=== PATIENT | female | born 1955 | race Caucasian/White ===

== ENCOUNTER 2021-10-12 02:23 | Inpatient (IN) ==
[2021-10-12 02:54] LABS: ABS Eosinophils 0.1 10^3/ul (0-0.6); ABS Monocytes 0.7 10^3/ul (0-0.8); ABS Neutrophils 8.1 10^3/ul (1.5-7.7); Hematocrit 37 % (35-47); Hemoglobin 12.5 g/dL (12.0-16.0); Lymphocyte % 10.1 %; Mean Corpuscular HGB Conc 34 g/dL (31-36); Mean Corpuscular Hemoglobin 32 pg (27-31); Mean Corpuscular Volume 96 fL (80-97); Mean Platelet Volume 8.6 fL (7.4-10.4); Platelet Count 251 10^3/uL (150-450); Red Blood Count 3.89 10^6 /uL (3.70-4.87); Red Cell Distribution Width 14 % (10-15)
[2021-10-12] MEDS ORDERED: Lidocaine PATCH 5% PATCH TRANSDERM ONE (02:54)
[2021-10-12 03:01] LABS: INR 1.19 (0.86-1.15)
[2021-10-12 03:10] LABS: ALT 19 U/L (7-52); AST 18 U/L (13-39); Albumin 3.8 g/dL (3.2-5.2); Albumin/Globulin Ratio 1.4 (1-3); Alkaline Phosphatase 56 U/L (35-149); Anion Gap 6 mmol/L (2-11); Blood Urea Nitrogen 14 mg/dL (6-24); CO2 Carbon Dioxide 26 mmol/L (22-32); Calcium 7.9 mg/dL (8.6-10.3); Chloride 103 mmol/L (101-111); Creatine Kinase 244 U/L (10-223); Globulin 2.8 g/dL (2-4); Glucose 155 mg/dL (70-100); Potassium 4.1 mmol/L (3.5-5.0); Sodium 135 mmol/L (135-145); Total Protein 6.6 g/dL (6.4-8.9); eGFR CKD-EPI 54.3 (>60)
[2021-10-12] MEDS ORDERED: Iodixanol (CONTRAST) 320 MG/ML 100 ML SDV IV ONE (03:48)
[2021-10-12 04:13] LABS: C Reactive Protein 78.01 mg/L (<8.01)
[2021-10-12] MEDS ORDERED: Lactated Ringers 1000 ml BAG 1,000 ML IV ONE (06:00)
[2021-10-12] MEDS ORDERED: Azithromycin 500 mg/250 ml NS 500 MG/250 ML BAG IVPB SCH (07:00)
[2021-10-12] MEDS: oxyCODONE/Acetamin 5/325 mg TAB PO PRN (08:19)
[2021-10-12 08:54] LABS: Anion Gap 5 mmol/L (2-11); Blood Urea Nitrogen 11 mg/dL (6-24); CO2 Carbon Dioxide 24 mmol/L (22-32); Calcium 7.1 mg/dL (8.6-10.3); Chloride 108 mmol/L (101-111); Creatine Kinase 313 U/L (10-223); Glucose 103 mg/dL (70-100); Potassium 3.5 mmol/L (3.5-5.0); Sodium 137 mmol/L (135-145); eGFR CKD-EPI 69.5 (>60)
[2021-10-12 09:04] LABS: Troponin I 0.24 ng/mL (<0.03)
[2021-10-12] MEDS: Lidocaine PATCH 5% PATCH TRANSDERM SCH (09:12)
[2021-10-12 09:27] LABS: Urine Appearance Cloudy; Urine Bacteria Absent (Absent); Urine Bilirubin Negative (Negative); Urine Blood 1+ (Negative); Urine Color Yellow; Urine Glucose Negative (Negative); Urine Ketones Negative (Negative); Urine Nitrite Negative (Negative); Urine Protein 1+(30 mg/dL) (Negative); Urine Red Blood Cell Trace(0-2/hpf) (Absent); Urine Squamous Epithelial Cell Present (Absent); Urine Urobilinogen Negative (Negative); Urine White Blood Cell Trace(0-5/hpf) (Absent)
[2021-10-12 09:39] LABS: Urine Specific Gravity > 1.060 (1.002-1.030)
[2021-10-12] MEDS: DOXYcycline 100 MG in NS 0.9% 250 ml 250 ML IVPB SCH ×2 (11:05→21:26)
[2021-10-12] MEDS: Morphine 2 MG/ML SYRINGE IV PRN ×4 (12:52→21:25)
[2021-10-12] MEDS ORDERED: Lidocaine Patch REMOVE NOTE PATCH OFF SCH (21:00)
[2021-10-12] MEDS: Lidocaine Patch REMOVE NOTE PATCH OFF SCH (21:16)
[2021-10-12] MEDS ORDERED: Ondansetron 4 mg VIAL 2 MG/ML 2 ml VIAL IV PRN (21:45)
[2021-10-13] MEDS: Morphine 2 MG/ML SYRINGE IV PRN ×2 (03:39→20:28)
[2021-10-13] MEDS ORDERED: cefTRIAXone 1 gm/50 mL NS BAG 1 GM/50 ML BAG IVPB SCH (08:00)
[2021-10-13] MEDS: Lidocaine PATCH 5% PATCH TRANSDERM SCH (08:41)
[2021-10-13 09:02] LABS: ABS Eosinophils 0.1 10^3/ul (0-0.6); ABS Lymphocytes 1.4 10^3/ul (1.0-4.8); ABS Monocytes 0.4 10^3/ul (0-0.8); ABS Neutrophils 4.4 10^3/ul (1.5-7.7); Eosinophil % 1.7 %; Hematocrit 37 % (35-47); Hemoglobin 12.4 g/dL (12.0-16.0); Lymphocyte % 21.3 %; Mean Corpuscular HGB Conc 34 g/dL (31-36); Mean Corpuscular Hemoglobin 33 pg (27-31); Mean Corpuscular Volume 97 fL (80-97); Mean Platelet Volume 8.4 fL (7.4-10.4); Platelet Count 254 10^3/uL (150-450); Red Cell Distribution Width 14 % (10-15); White Blood Count 6.4 10^3/uL (3.5-10.8)
[2021-10-13 09:16] LABS: Albumin 3.8 g/dL (3.2-5.2); Albumin/Globulin Ratio 1.2 (1-3); Calcium 8.2 mg/dL (8.6-10.3); Globulin 3.2 g/dL (2-4); Magnesium 2.1 mg/dL (1.9-2.7); Potassium 3.8 mmol/L (3.5-5.0); Total Bilirubin 0.5 mg/dL (0.2-1.0); eGFR CKD-EPI 71.4 (>60)
[2021-10-13] MEDS: DOXYcycline 100 MG in NS 0.9% 250 ml 250 ML IVPB SCH (10:06)
[2021-10-13] MEDS: oxyCODONE/Acetamin 5/325 mg TAB PO PRN (13:21)
[2021-10-13] MEDS: Lidocaine Patch REMOVE NOTE PATCH OFF SCH (20:29)
[2021-10-14] MEDS: Morphine 2 MG/ML SYRINGE IV PRN ×3 (00:42→08:54)
[2021-10-14] MEDS: oxyCODONE/Acetamin 5/325 mg TAB PO PRN ×3 (03:39→21:45)
[2021-10-14 07:13] LABS: Hematocrit 36 % (35-47); Hemoglobin 12.2 g/dL (12.0-16.0); Mean Corpuscular HGB Conc 34 g/dL (31-36); Mean Corpuscular Hemoglobin 33 pg (27-31); Mean Corpuscular Volume 96 fL (80-97); Mean Platelet Volume 8.3 fL (7.4-10.4); Platelet Count 286 10^3/uL (150-450); Red Blood Count 3.71 10^6 /uL (3.70-4.87); Red Cell Distribution Width 14 % (10-15); White Blood Count 6.2 10^3/uL (3.5-10.8)
[2021-10-14] MEDS: Lidocaine PATCH 5% PATCH TRANSDERM SCH (09:13)
[2021-10-14] MEDS ORDERED: Senna TAB 8.6 mg TAB PO ONE (13:02)
[2021-10-14] MEDS: CMC: Meloxicam 7.5 mg TAB (NF) PO SCH (14:38)
[2021-10-14 14:46] LABS: Urine Bacteria Absent (Absent); Urine Red Blood Cell Absent (Absent); Urine Squamous Epithelial Cell Present (Absent); Urine White Blood Cell Absent (Absent)
[2021-10-14 14:52] LABS: Urine Appearance Clear; Urine Bilirubin Negative (Negative); Urine Blood Negative (Negative); Urine Color Colorless; Urine Glucose Negative (Negative); Urine Ketones Negative (Negative); Urine Nitrite Negative (Negative); Urine Protein Negative (Negative); Urine Specific Gravity 1.005 (1.002-1.030); Urine Urobilinogen Negative (Negative); Urine pH 8 (5-9)
[2021-10-14] MEDS: Lidocaine Patch REMOVE NOTE PATCH OFF SCH (21:47)
[2021-10-15 06:21] LABS: ABS Eosinophils 0.2 10^3/ul (0-0.6); ABS Lymphocytes 1.7 10^3/ul (1.0-4.8); ABS Monocytes 0.6 10^3/ul (0-0.8); ABS Neutrophils 3.8 10^3/ul (1.5-7.7); Eosinophil % 2.9 %; Hematocrit 39 % (35-47); Hemoglobin 13.4 g/dL (12.0-16.0); Lymphocyte % 26.7 %; Mean Corpuscular HGB Conc 35 g/dL (31-36); Mean Corpuscular Hemoglobin 33 pg (27-31); Mean Corpuscular Volume 96 fL (80-97); Mean Platelet Volume 8.4 fL (7.4-10.4); Platelet Count 319 10^3/uL (150-450); Red Blood Count 4.02 10^6 /uL (3.70-4.87); Red Cell Distribution Width 13 % (10-15); White Blood Count 6.4 10^3/uL (3.5-10.8)
[2021-10-15 06:37] LABS: Calcium 8.7 mg/dL (8.6-10.3); Magnesium 2.2 mg/dL (1.9-2.7); Potassium 4.1 mmol/L (3.5-5.0); eGFR CKD-EPI 78.7 (>60)
[2021-10-15] MEDS: Lidocaine PATCH 5% PATCH TRANSDERM SCH (09:47)
[2021-10-15] MEDS: CMC: Meloxicam 7.5 mg TAB (NF) PO SCH (09:48)
[2021-10-15] MEDS: oxyCODONE/Acetamin 5/325 mg TAB PO PRN ×2 (09:50→18:16)
[2021-10-15] MEDS: Magnesium Hydroxide LIQ 30 ML UDC PO PRN ×2 (18:16→20:15)
[2021-10-15] MEDS: Lidocaine Patch REMOVE NOTE PATCH OFF SCH (20:16)
[2021-10-16 07:53] LABS: ABS Lymphocytes 0.9 10^3/ul (1.0-4.8); ABS Monocytes 0.2 10^3/ul (0-0.8); ABS Neutrophils 6.7 10^3/ul (1.5-7.7); Eosinophil % 0.1 %; Hematocrit 41 % (35-47); Hemoglobin 13.9 g/dL (12.0-16.0); Lymphocyte % 11.6 %; Mean Corpuscular HGB Conc 34 g/dL (31-36); Mean Corpuscular Hemoglobin 33 pg (27-31); Mean Corpuscular Volume 95 fL (80-97); Mean Platelet Volume 8.2 fL (7.4-10.4); Platelet Count 419 10^3/uL (150-450); Red Blood Count 4.28 10^6 /uL (3.70-4.87); Red Cell Distribution Width 13 % (10-15); White Blood Count 7.8 10^3/uL (3.5-10.8)
[2021-10-16 08:38] LABS: Calcium 9.3 mg/dL (8.6-10.3); Magnesium 2.4 mg/dL (1.9-2.7); Potassium 4.4 mmol/L (3.5-5.0)
[2021-10-16] MEDS: Lidocaine PATCH 5% PATCH TRANSDERM SCH (08:41)
[2021-10-16] MEDS: CMC: Meloxicam 7.5 mg TAB (NF) PO SCH (08:42)
[2021-10-16 08:44] LABS: eGFR CKD-EPI 88.8 (>60)
[2021-10-16] MEDS: Magnesium Hydroxide LIQ 30 ML UDC PO PRN (11:40)
[2021-10-16] MEDS: Lidocaine Patch REMOVE NOTE PATCH OFF SCH (21:25)
[2021-10-17] MEDS: oxyCODONE/Acetamin 5/325 mg TAB PO PRN (05:31)
[2021-10-17] MEDS: Lidocaine PATCH 5% PATCH TRANSDERM SCH (09:50)
[2021-10-17] MEDS: CMC: Meloxicam 7.5 mg TAB (NF) PO SCH (09:51)
[2021-10-17 18:32] VITALS: BP 123/61
== END 2021-10-17 16:16 | DRG 134 ==
LOC: ED 02:23 → SUATTDRO 05:45 → EDHOLD 05:45 → MEDTELE 05:45
PROVIDERS: ADMIT Internal Medicine; ATTEND Internal Medicine

== ENCOUNTER 2021-10-17 16:35 | Inpatient (IN) ==
[2021-10-18] MEDS: oxyCODONE/Acetamin 5/325 mg TAB PO PRN ×2 (01:51→23:42)
[2021-10-19 06:31] LABS: ABS Lymphocytes 1.4 10^3/ul (1.0-4.8); ABS Monocytes 0.8 10^3/ul (0-0.8); ABS Neutrophils 7.8 10^3/ul (1.5-7.7); Hematocrit 42 % (35-47); Hemoglobin 13.9 g/dL (12.0-16.0); Lymphocyte % 14.2 %; Mean Corpuscular HGB Conc 34 g/dL (31-36); Mean Corpuscular Hemoglobin 32 pg (27-31); Mean Corpuscular Volume 96 fL (80-97); Mean Platelet Volume 8.2 fL (7.4-10.4); Nucleated Red Blood Cells % 0.1; Platelet Count 447 10^3/uL (150-450); Red Blood Count 4.34 10^6 /uL (3.70-4.87); Red Cell Distribution Width 14 % (10-15)
[2021-10-19 06:58] LABS: Albumin 4.2 g/dL (3.2-5.2); Albumin/Globulin Ratio 1.2 (1-3); Calcium 8.8 mg/dL (8.6-10.3); Globulin 3.5 g/dL (2-4); Potassium 4.4 mmol/L (3.5-5.0); Total Bilirubin 0.4 mg/dL (0.2-1.0); Total Protein 7.7 g/dL (6.4-8.9); eGFR CKD-EPI 76.5 (>60)
[2021-10-19] MEDS: oxyCODONE/Acetamin 5/325 mg TAB PO PRN ×2 (08:25→19:42)
[2021-10-19] MEDS: Senna TAB 8.6 mg TAB PO PRN (19:41)
[2021-10-20] MEDS: oxyCODONE/Acetamin 5/325 mg TAB PO PRN ×2 (09:02→20:13)
[2021-10-21] MEDS: oxyCODONE/Acetamin 5/325 mg TAB PO PRN ×4 (02:17→18:21)
[2021-10-21] MEDS: Magnesium Hydroxide LIQ 30 ML UDC PO PRN (18:01)
[2021-10-22] MEDS: oxyCODONE/Acetamin 5/325 mg TAB PO PRN ×5 (00:11→23:37)
[2021-10-22] MEDS ORDERED: ESTRADIOL 10 MCG VAGINAL SCH (20:00)
[2021-10-22] MEDS ORDERED: NF: Estradiol VAGINAL TAB (NF) 10 MCG VAG.TAB VAGINAL SCH (20:00)
[2021-10-23] MEDS: oxyCODONE/Acetamin 5/325 mg TAB PO PRN ×5 (03:47→23:45)
[2021-10-23] MEDS: Magnesium Hydroxide LIQ 30 ML UDC PO PRN (18:37)
[2021-10-23] MEDS: Senna TAB 8.6 mg TAB PO PRN (20:44)
[2021-10-24] MEDS: oxyCODONE/Acetamin 5/325 mg TAB PO PRN ×2 (06:36→10:36)
[2021-10-24 06:47] VITALS: BP 138/71
== END 2021-10-24 15:24 | disposition home health service (06) | DRG 347 ==
LOC: PMRU 18:30
PROVIDERS: ADMIT Physical Medicine & Rehabilitation; ATTEND Physical Medicine & Rehabilitation